=== PATIENT | female | born 1955 | race Caucasian/White ===

== ENCOUNTER 2017-08-19 15:42 | Outpatient (CLI) | payer MEDICARE ==
[2017-08-19 17:13] LABS: #Eosinphils 0.2 thou/uL (0.0-0.7); #Lymphocytes 1.6 thou/uL (1.20-3.40); #Monocytes 0.5 thou/uL (0.11-0.59); #Neutrophils 4.8 thou/uL (1.40-6.50); %Basophils 0.6 % (0.0-1.0); %Eosinophils 2.7 % (0.0-10.0); %Lymphocytes 22.3 % (21.0-51.0); %Monocytes 7.2 % (0.0-10.0); %Neutrophils 67.2 % (42.0-75.0); Mean Corpuscular HGB CONC 32.7 g/dL (32.0-36.0); Mean Corpuscular Hemoglobin 32.3 pg (27.0-31.0); Mean Corpuscular Volume 98.9 fl (81.0-99.0); Mean Platelet Volume 8.2 fL (7.4-10.4); Platelet Count 237 thou/uL (130-400); RBC Distribution Width 11.7 % (11.5-14.5); Red Blood Cell (RBC) Count 4.01 mill/uL (4.20-5.40); White Blood Cell (WBC) Count 7.2 thou/uL (4.8-10.8)
[2017-08-19 17:30] LABS: Anion Gap 12 mmol/L (10-20); BUN (Urea Nitrogen) 27 mg/dL (9.8-20.1); Calc. Creatinine Clearance 0 mL/min (70-130); Calcium 9.8 mg/dL (7.8-10.44); Carbon Dioxide 31 mmol/L (23-31); Chloride 97 mmol/L (98-107); Estimated GFR-MDRD 9; Glucose 231 mg/dL (80-115); Potassium 4.2 mmol/L (3.5-5.1); Sodium 136 mmol/L (136-145)
--- NOTE | 2017-08-20 16:41 | EKG ---
Test Reason : Blood Pressure : / mmHG Vent. Rate : 068 BPM Atrial Rate : 068 BPM P-R Int : 138 ms QRS Dur : 092 ms QT Int : 440 ms P-R-T Axes : 023 -08 058 degrees QTc Int : 467 ms Normal sinus rhythm Moderate voltage criteria for LVH, may be normal variant Borderline ECG When compared with ECG of 28-OCT-2012 08:47, No significant change was found Confirmed by DR. Brett JOHNS ([id number]) on 08/20/2017 4:41:23 PM Referred By: JAELYN Confirmed By:DR. Brett JOHNS
== END 2017-08-19 15:43 | disposition home or self-care (01) ==
LOC: LABBT 15:42
PROVIDERS: ATTEND Specialist
DX: Z01.818 Encounter for other preprocedural examination (principal); T82.898A Other specified complication of vascular prosthetic devices, implants and grafts, initial encounter
CPT/HCPCS: 80048; 85025; 93005; 93010

== ENCOUNTER 2017-08-24 09:30 | Day surgery (SDC) | payer MEDICARE ==
--- NOTE | 2017-08-11 13:36 | HP ---
HISTORY OF PRESENT ILLNESS: Thelma Brenner is a 62-year-old female, dialyzes on Wednesday, Wednesday, and Wednesday at [facility], followed by Dr. Oskar Kat. She has a left arm dialysis fistula, upper arm, with a large aneurysmal dilatation. This seems to be enlarging. Plan is to repair this. Her fistula was established in 2010. fistula. She has had a stroke one in 2015 and one in 2017, r esulting in left hemiparesis and speech problems. She is accompanied by her daughter. 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 Plan is for repair of her left upper arm dialysis fist chloe aneurysm. She actually has three fistulas and this aneurysm and we will plan to repair the large r ones in a staged fashion, so that she does not have to have a catheter. ALLERGIES: None. TOBACCO: None. ALCOHOL: None. PAST SURGICAL HISTORY: Left upper arm AV fistula placement in 2010 placed, hemodialysis cathet er placed and removed, . 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 PHYSICAL EXAMINATION: VITAL SIGNS: Blood pressure 180/73, pulse 70, temperature 99 degrees. She is in a wheelchair. LUNGS: Clear to auscultation. CARDIAC: Regular rate and rhythm without murmur or gallop. ABDOMEN: Soft, nontender. ASSESSMENT AND PLAN: Left hemiparesis, left upper extremity fistula with three aneurysmal dilatation s, the larger ones are above the antecubital fossa. We will plan repair of the larger aneurysm in a staged fashion to avoid catheter. We will plan this as an outpatient. Risks of infection, bleeding, reoperation, malfunction of fistula thrombosis explained, she consents.
[2017-08-19 16:03] VITALS: BMI 27.0
[2017-08-24] MEDS ORDERED: CEFAZOLIN/Water 2 GM/20 ML SYRINGE ONE (10:41)
[2017-08-24 10:58] LABS: Potassium 3.9 mmol/L (3.5-5.1)
[2017-08-24] MEDS ORDERED: Fentanyl 100 MCG/2 ML VIAL ONE ×2 (11:00→12:04)
[2017-08-24] MEDS ORDERED: Bupivacaine HCl 0.5%/Epinephrine 1:200,000/PF 30 ml Vial ONE (12:18)
[2017-08-24] MEDS ORDERED: Lidocaine 2% 10 ML INJ ONE (12:18)
[2017-08-24] MEDS ORDERED: Protamine Sulfate 50 MG/5 ML VIAL ONE (12:18)
[2017-08-24] MEDS ORDERED: Heparin 5,000 UNITS/ML VIAL ONE (12:18)
--- NOTE | 2017-08-24 14:47 | OP ---
DATE OF PROCEDURE: 08/24/2017 PREOPERATIVE DIAGNOSES: End-stage renal disease, left upper arm cephalic vein arteriovenous fistula aneurysms x3. The larger two more distal above the antecubital fossa. POSTOPERATIVE DIAGNOSES: End-stage renal disease, left upper arm cephalic vein arteriovenous fistula aneurysms x3. The larger two more distal above the antecubital fossa. PROCEDURE: Revision of left upper arm AV fistula, klamath vein without thrombectomy with repair of an eurysms x2. SURGEON: Dr. Bronson Dennison. ANESTHESIA: Regional, TIVA. PROCEDURE IN DETAIL: Patient taken to the operating room where under regional anesthesia and intrave nous sedation, left upper extremity was prepped with ChloraPrep and draped in routine fashion. The p atient had 2 large aneurysmal dilatations of the AV fistula above the antecubital fossa. Elliptical incisions were made over the surface of these individually, carried down skin and subcutaneous tissue and subcutaneous tissue dissected free from the aneurysms. The incision was connected as one. The patient was given 6000 units heparin intravenously. After adequate circulation time, the AV fistula inflow and outflow controlled with a vascular clamp and a resection of the excised ellipse of skin ov er each of the aneurysms and resection of the redundant aneurysmal wall performed. The mid aneurysma l dilatation had a large amount of thrombus. This was excised. Excessive wall excised. The aneurys m was then repaired restoring the fistula, normal configuration with to and fro sutures of 4-0 Prolen e overlapping imbricating suture. Vascular clamps were released and there was good flow in the fistu la. Good hemostasis noted. Patient given 50 mg of protamine intravenously. Skin and subcutaneous t issues irrigated. Good hemostasis ensured with the cautery. Subcutaneous tissues approximated with 3-0 Monocryl, skin with subdermal 4-0 Monocryl, and DermaGlue applied. Jose Antonio wrap applied. Patient to lerated the procedure well.
== END 2017-08-24 15:18 | disposition home or self-care (01) ==
LOC: SDC 09:30
PROVIDERS: ATTEND Specialist
PROC: 03QC0ZZ Repair Left Radial Artery, Open Approach (ICD-10-PCS; principal; 2017-08-24)
DX: T82.898A Other specified complication of vascular prosthetic devices, implants and grafts, initial encounter (principal); I12.0 Hypertensive chronic kidney disease with stage 5 chronic kidney disease or end stage renal disease; E11.22 Type 2 diabetes mellitus with diabetic chronic kidney disease; N18.6 End stage renal disease; E11.319 Type 2 diabetes mellitus with unspecified diabetic retinopathy without macular edema; E11.21 Type 2 diabetes mellitus with diabetic nephropathy; E11.40 Type 2 diabetes mellitus with diabetic neuropathy, unspecified; I69.354 Hemiplegia and hemiparesis following cerebral infarction affecting left non-dominant side; I69.328 Other speech and language deficits following cerebral infarction; H54.8 Legal blindness, as defined in USA; E78.5 Hyperlipidemia, unspecified; E03.9 Hypothyroidism, unspecified; F32.9 Major depressive disorder, single episode, unspecified; Z99.2 Dependence on renal dialysis
CPT/HCPCS: 36415; 36416; 84132; J0670; J1644; J2720; J3010

== ENCOUNTER 2017-10-23 11:52 | Inpatient (IN) | payer MEDICARE ==
[2017-10-23] MEDS ORDERED: Propofol 1,000 MG/100 ML VIAL IV ONE (11:57)
[2017-10-23 12:23] LABS: #Eosinphils 0.2 thou/uL (0.0-0.7); #Lymphocytes 1.7 thou/uL (1.20-3.40); #Monocytes 0.4 thou/uL (0.11-0.59); #Neutrophils 6.8 thou/uL (1.40-6.50); %Basophils 0.5 % (0.0-1.0); %Eosinophils 2.2 % (0.0-10.0); %Lymphocytes 18.9 % (21.0-51.0); %Monocytes 3.9 % (0.0-10.0); %Neutrophils 74.5 % (42.0-75.0); Hemoglobin 12.4 g/dL (12.0-16.0); Mean Corpuscular Hemoglobin 32.4 pg (27.0-31.0); Mean Corpuscular Volume 95.3 fL (78.0-98.0); Mean Platelet Volume 8.5 fL (7.4-10.4); Platelet Count 214 thou/uL (130-400); RBC Distribution Width 12.2 % (11.5-14.5); Red Blood Cell (RBC) Count 3.82 mill/uL (4.20-5.40); White Blood Cell (WBC) Count 9.1 thou/uL (4.8-10.8)
[2017-10-23 12:29] LABS: Bilirubin Small (Negative); Blood, Urine Moderate (Negative); Clarity CLOUDY (Clear); Glucose, Urine (Dipstick) 100 mg/dL (Negative); Leukocyte Small (Negative); Nitrite Positive (Negative); Protein, Urine (Dipstick) 300 mg/dL (Neg-Trace); Specific Gravity, Urine 1.016 (1.002-1.036); Urobilinogen 0.2 mg/dL (0.2-1.0)
[2017-10-23 12:32] LABS: Hyaline Casts/LPF 0-3 HYALINE CAST LPF (0-3 Hyaline); Pathc Cast-AUWi Flag 0.43 (0-2.49); RBC/HPF 0-3 HPF (0-3); Squamous Epithelial 0-3 HPF (0-3)
--- NOTE | 2017-10-23 12:32 | RAD ---
CHEST 1 VIEW: COMPARISON: 10/28/12. HISTORY: Intubated patient. Unresponsive patient. The patient undergoes dialysis. FINDINGS: There is an endotracheal tube just beyond the level of the clavicles. There is a stent projecting ov er the left subclavian vasculature. There is increased opacity in the right upper lobe which may rep resent atelectasis or pneumonia. Possible mass lesion cannot be completely excluded. Small right-si ded pleural effusion is noted. Adequate aeration of the left lung. Normal cardiac silhouette. IMPRESSION: Increased opacification of right upper lobe. Findings may be due to atelectasis, pneumonia, or possi ble mass. POS: H
[2017-10-23 12:35] LABS: Yeast-AUWi Flag 65.4 (0-25.0)
[2017-10-23] MEDS ORDERED: niCARdipine 20MG In NaCl 20 MG/200 ML BAG ONE (12:35)
[2017-10-23 12:40] LABS: CO2 Tension 30.5 mmHg (35.0-45.0); pH, Arterial 7.52 (7.35-7.45)
[2017-10-23 12:41] LABS: Actual Bicarbonate (HCO3a) 24.6 mEq/L (22-28); Base Excess (BEa) 2.4 mEq/L (-2.0 to +3.0); Hematocrit-ABG 39.5 % (36.0-47.0); Hemoglobin (Hb) 11.9 g/dL (12.0-16.0)
[2017-10-23 12:42] LABS: ALV-art Gradient 241.675 (0-20); Analyzer IN Cardio ER; Calcium, Ionized 1.1 mmol/L (1.12-1.30); Puncture Site RB
[2017-10-23 12:43] LABS: Bacteria/HPF Rare-Few HPF (None Seen); Yeast-All Forms None Seen HPF (None Seen)
[2017-10-23 12:52] LABS: CKMB 0.6 ng/mL (0-6.6); Troponin I Less than 0.010 ng/mL (< 0.028)
[2017-10-23 12:55] LABS: ALT (SGPT) 20 U/L (8-55); AST (SGOT) 21 U/L (5-34); Albumin 3.7 g/dL (3.4-4.8); Alkaline Phosphatase 125 U/L (40-150); Anion Gap 20 mmol/L (10-20); BUN (Urea Nitrogen) 30 mg/dL (9.8-20.1); Bilirubin, Total 0.6 mg/dL (0.2-1.2); CK (CPK) 38 U/L (29-168); Calc. Creatinine Clearance 0 mL/min (70-130); Calcium 8.9 mg/dL (7.8-10.44); Carbon Dioxide 22 mmol/L (23-31); Chloride 99 mmol/L (98-107); Estimated GFR-MDRD 8; Globulin 4.2 g/dL (2.4-3.5); Glucose 205 mg/dL (80-115); Potassium 4.7 mmol/L (3.5-5.1); Protein, Total 7.9 g/dL (6.0-8.3); Sodium 136 mmol/L (136-145)
--- NOTE | 2017-10-23 13:02 | CT ---
HEAD CT WITHOUT CONTRAST: HISTORY: Unresponsive patient. COMPARISON: 10/28/12. TECHNIQUE: Noncontrast head CT is performed from skull base to the skull vertex. FINDINGS: There is a large intraparenchymal hemorrhage involving the left cerebrum measuring 7.2 x 5.2 cm. The re is associated cytotoxic edema involving the left frontal and temporal lobe. There is decompressio n of blood into the ventricular system. There is a large amount of blood within the ventricular syst em. There is hydrocephalus secondary to intraventricular hemorrhage as well as due to a large left t o right subfalcine hematoma measuring 1.6 cm. There is effacement of the basilar cisterns due to left to right subfalcine herniation as well as lef t frontal herniation. Calvarium is intact. Adequate aeration of the sinuses and mastoid air cells. IMPRESSION: Extensive intracranial hemorrhage as described above. There is ventricular dilatation due to presenc e of intraventricular blood as well as due to mass effect secondary to left to right subfalcine and l eft uncal herniation. The basilar cisterns are effaced. Results of the study were discussed with Dr Alejandrina Malcolm 10/23/17 at 12:45 p.m. CODE CR POS: [facility]
[2017-10-23 14:56] VITALS: BMI 28.3
--- NOTE | 2017-10-23 15:39 | PRG ---
DATE OF SERVICE: 10/23/2017 I personally examined the patient, reviewed records, I spoke with the family, reviewed imaging, and a gree with all the documentation of Esther Reynolds PA-C dated 10/23/2017. Briefly, Thelma Brenner is a 62-year-old woman with 2 prior ischemic strokes, 1 prior hemorrhagic strok e, who was brought to the emergency department today with acute loss of consciousness. Her son broug ht her to the ER, and CT examination of the brain revealed a massive left hemisphere basal ganglia he morrhage extension into the ventricular system, midline shift, herniation and Duret hemorrhages, and interpeduncular hemorrhage. Because she was moved from our emergency department to the ICU, I am see ing her in our ICU. As I entered the room, Ms. Brenner is on a Cardene drip. She is attached to the ventilator. She has taken 1, maybe 2 breaths over the ventilator. The rest of her brainstem reflexes are gone. Her pupi ls are midposition 5 mm and nonreactive. There is no corneal reflex on either side. There is no dol l's eyes reflex. I removed the endotracheal tube and removed the NG tube, and there is no gag reflex . There is no response to sternal rub. CT imaging of the brain reveals a hemorrhage as described above. This is deep in the frontal and tem poral lobes centered around the internal capsule and has extended into the ventricular system. It fi lls the third ventricle. There is interpeduncular blood. There is Duret hemorrhages in the brainste m. There is transtentorial herniation. IMPRESSION: Massive intracerebral hemorrhage with ventricular extension and herniation, no visible b rainstem reflexes other than 1-2 breaths over the ventilator rate. I had a long discussion with the patient's son. He agrees that the chest compressions, resuscitation , and medications to revive her heart would be against her wishes. We will make her a DNR status. I did advise her son that this event was not survivable. Surgical intervention is not indicated. I advised that we can make her as comfortable as possible and I chose to continue IV fluids and morph ine administration at least until his father can get here, and when the entire family is gathered and send their goodbyes she can be extubated. I think she will pass away quickly after extubation. If she is here in the morning, we will do a full brainstem evaluation and a formal apnea test and perfus ion test that proved brain , but I do not think she will even make it that long.
[2017-10-23 16:16] LABS: Lactic Acid 2.8 mmol/L (0.5-2.2)
[2017-10-23] MEDS: Sodium Chloride 0.9% 1,000 ML IV SCH (20:44)
--- NOTE | 2017-10-23 22:08 | CON ---
DATE OF CONSULTATION: 10/23/2017 NEUROSURGERY CONSULT HISTORY OF PRESENT ILLNESS: This is a 62-year-old female who was brought to the emergency room due to unresponsiveness. Patient's son is in the emergency room with her. He states that this morning, she woke up and did not feel very good. She was vomiting and when her blood pressure was taken, it was 210. At that time, patient was responding to her son; however, shortly thereafter, she became unresponsive. The son called the ambulance and upon arrival, EMS intubated her. In the emergency room, now patient is intubated. Patient is unresponsive. Patient does have a history of multiple strokes in the past. They deny any blood thinners other than a baby aspirin daily. PAST MEDICAL HISTORY: CVA with left-sided deficit, diabetes, hypothyroidism, hypertension, end-stage renal disease and history of stroke. PAST SURGICAL HISTORY: Dialysis shunt placed in the left upper arm, surgical history of section. SOCIAL HISTORY: Patient denies any alcohol use, drug use. No smoking history per the son. MEDICATIONS: Unknown due to patient unresponsive. Son states he does not know. Unable to obtain medications list. ALLERGIES: Unable to obtain. OF SYSTEMS: Unable to obtain review of systems. PHYSICAL EXAMINATION: VITAL SIGNS: Blood pressure 217/94, heart rate 73, respiration rate 16 on the vent. GENERAL: The patient is intubated, unresponsive in ER bed. Patient is hypertensive. HEAD: Atraumatic, normocephalic. EYES: Pupils are equal, round and not reactive to light. Both pupils are fixed. RESPIRATORY: Rhonchi are present. Patient is breathing due to ventilator. CARDIOVASCULAR: Normal S1, S2, no murmurs. NEUROLOGIC: Unresponsive, patient is GCS 3. Pupils are not reactive to light. There is no gag reflex, no scleral reflex. Patient is unresponsive to painful stimuli. IMAGING DATA: CT brain has extensive intracranial hemorrhage in the left cerebellum measuring 7.2 x 5.2 cm. There is ventricular dilation with presence of intraventricular blood as well brain stem herniation. The basilar cisterns are affected. ASSESSMENT AND PLAN: This is a 62-year-old female who was brought to the emergency room for unresponsiveness. Due to the extensive nature of her intracranial hemorrhage and brain stem herniation, there is no neurosurgical intervention that would create a meaningful outcome for this patient. We will make the patient comfortable and allow family to see her. [facility]ITALLakes[facility]
[2017-10-24] MEDS: Sodium Chloride 0.9% 1,000 ML IV SCH (07:04)
--- NOTE | 2017-10-24 07:49 | PRG ---
DATE OF SERVICE: 10/24/2017 NEUROSURGERY NOTE SUBJECTIVE: It is under the impression that Ms. Brenner's son and would elect to extubate her yesterday, moved to comfort care only, but they have continued ventilatory support overnight. Adilson howell reports 1-2 breaths over the rate of the ventilator during the middle of the night, but none this morning. Vital signs showed the blood pressure is in the 90s, respiratory rate is controlled by the ventilator and is currently set at 12. There is no fever. Other vitals are stable. NEUROLOGICAL EXAMINATION: Ms. Brenner is having no movement. The pupils are midposition and nonreact obdulio. The corneal reflexes are absent. There is no doll's eyes reflex. There is no gag when I move the nasogastric tube or the endotracheal tube. I have temporarily set the rate of the ventilator tiesha rose to 1 breath per minute and she has initiated no breath over the course of 15-20 seconds when I rese t the rate. ASSESSMENT: Intracerebral hemorrhage, ventricular extension, herniation. PLAN: brain study, Mr. Brenner this morning. We will reflexes again and then apnea test and get a perfusion study. We will confirm brain and then discussed with the family.
[2017-10-24 07:54] VITALS: BP 102/32
[2017-10-24 08:07] LABS: Actual Bicarbonate (HCO3a) 23.3 mEq/L (22-28); Base Excess (BEa) 1.4 mEq/L (-2.0 to +3.0); CO2 Tension 28.4 mmHg (35.0-45.0); O2 Tension (PaO2) 95.5 mmHg (> 80.0); pH, Arterial 7.53 (7.35-7.45)
[2017-10-24 08:08] LABS: Hemoglobin (Hb) 11.5 g/dL (12.0-16.0)
[2017-10-24 08:09] LABS: Calcium, Ionized 1.1 mmol/L (1.12-1.30)
[2017-10-24 08:10] LABS: Puncture Site RBRACH
[2017-10-24 08:11] LABS: Actual Bicarbonate (HCO3a) 23.7 mEq/L (22-28); CO2 Tension 31.4 mmHg (35.0-45.0)
[2017-10-24 08:13] LABS: Hemoglobin (Hb) 11.3 g/dL (12.0-16.0)
[2017-10-24 08:15] LABS: Calcium, Ionized 1.1 mmol/L (1.12-1.30)
[2017-10-24 08:16] LABS: Puncture Site RBRACH
[2017-10-24 08:18] LABS: Actual Bicarbonate (HCO3a) 21.4 mEq/L (22-28); Base Excess (BEa) -1.6 mEq/L (-2.0 to +3.0); Hemoglobin (Hb) 11.3 g/dL (12.0-16.0); O2 Tension (PaO2) 392.3 mmHg (> 80.0); pH, Arterial 7.47 (7.35-7.45)
[2017-10-24 08:19] LABS: Calcium, Ionized 1.1 mmol/L (1.12-1.30); Puncture Site RB
[2017-10-24 08:34] LABS: ALT (SGPT) 13 U/L (8-55); AST (SGOT) 8 U/L (5-34); Albumin 3.2 g/dL (3.4-4.8); Alkaline Phosphatase 104 U/L (40-150); Anion Gap 18 mmol/L (10-20); BUN (Urea Nitrogen) 37 mg/dL (9.8-20.1); Bilirubin, Direct 0.3 mg/dL (0.1-0.3); Bilirubin, Total 0.7 mg/dL (0.2-1.2); Calc. Creatinine Clearance 10 mL/min (70-130); Calcium 8.9 mg/dL (7.8-10.44); Carbon Dioxide 22 mmol/L (23-31); Chloride 103 mmol/L (98-107); Estimated GFR-MDRD 7; Globulin 3.2 g/dL (2.4-3.5); Glucose 235 mg/dL (80-115); Potassium 3.9 mmol/L (3.5-5.1); Protein, Total 6.4 g/dL (6.0-8.3); Sodium 139 mmol/L (136-145)
[2017-10-24 09:30] VITALS: TEMP 95.6
--- NOTE | 2017-10-24 14:24 | PRG ---
DATE OF SERVICE: 10/24/2017 NEUROSURGERY NOTE SUBJECTIVE: We started her brain evaluation of Ms. Thelma Brenner this morning. I repeated the brain stem reflex evaluation and I found no reaction of the pupils, no corneal reflex, no oculocephal ic reflex, and no gag reflex. There is no response to painful stimulus both to the supraorbital nerv e and the sternum. We were in the process of adjusting the ventilator to get normocarbia. We notice d a few spontaneous breaths and aborted the rest of the brain evaluation. Due to spontaneous respiratory efforts, she does not meet criteria for brain currently. We brett l repeat the study tomorrow. The patient's family ____ rights to extubate her and make her comfortab le any time they wish. If they do so, we will give her morphine for any observable signs of air hung er and discomfort, I doubt there will be any. I would not expect her to survive through the night af ter extubation.
--- NOTE | 2017-10-25 14:54 | DS ---
BRAD CHUA DATE OF ADMISSION: 10/23/2017 EXPIRATION DATE: 10/24/2017 CHIEF COMPLAINT: Altered mental status. ADMITTING PHYSICIAN: Dr. Burnett. HOSPITAL COURSE: The patient was brought into the ER due to unresponsiveness at home. CT brain was done and showed extensive intracranial hemorrhage with a left cerebellum with ventricular dilation, v entricular blood and brainstem herniation. Due to the extent of the hemorrhage and brainstem herniat ion, there was no neurosurgical intervention that would create a meaningful outcome for this patient. Comfort measures were put into place. On 11/03/2017, there was a brain study performed at 15 27 hours, patient was extubated and at 1613 hours, patient .
== END 2017-10-24 16:13 | disposition expired | DRG 64 ==
LOC: ERS 11:52 → CCU 14:32
PROVIDERS: ADMIT Neurological Surgery; ATTEND Neurological Surgery
PROC: 5A1935Z Respiratory Ventilation, Less than 24 Consecutive Hours (ICD-10-PCS; principal; 2017-10-23)
DX: I61.4 Nontraumatic intracerebral hemorrhage in cerebellum (principal); G93.5 Compression of brain; N18.6 End stage renal disease; I12.0 Hypertensive chronic kidney disease with stage 5 chronic kidney disease or end stage renal disease; E11.22 Type 2 diabetes mellitus with diabetic chronic kidney disease; R40.2312 Coma scale, best motor response, none, at arrival to emergency department; R40.2112 Coma scale, eyes open, never, at arrival to emergency department; R40.2212 Coma scale, best verbal response, none, at arrival to emergency department; E03.9 Hypothyroidism, unspecified; Z66 Do not resuscitate; Z99.2 Dependence on renal dialysis; Z86.73 Personal history of transient ischemic attack (TIA), and cerebral infarction without residual deficits; Z79.82 Long term (current) use of aspirin; Z79.899 Other long term (current) drug therapy
CPT/HCPCS: 36415; 51702; 70450; 71045; 80053; 80076; 81003; 81015; 82553; 82805; 83605; 83880; 84484; 85025; 87040; 87086; 93005; 94002; 94003; 94760; 96365; 96366; J2704